=== PATIENT | female | born 1955 | race Hispanic/Latino ===

== ENCOUNTER 2022-11-21 15:26 | Inpatient (IN) | payer MEDICARE, OTHER ==
[~2022-11-21] VITALS: Ht 162.6 cm; Wt 86.2 kg
[2022-11-21] MEDS ORDERED: ONDANSETRON HCL INJ 2MG/ML 2ML 2 MG/ML VIAL IV STA (15:37)
[2022-11-21] MEDS ORDERED: ONDANSETRON HCL INJ 2MG/ML 2ML 2 MG/ML VIAL IV PRN (16:00)
[2022-11-21] MEDS ORDERED: Morphine 2mg Syringe 2 MG/ML SYR IV PRN (16:00)
[2022-11-21 16:12] LABS: BASOPHILS # (AUTO) 0.1 (0.0-0.1); BASOPHILS % 0.6 % (0.0-1.0); EOSINOPHILS # (AUTO) 0.2 (0.0-0.4); EOSINOPHILS % 1.6 % (0.0-6.0); HEMATOCRIT 42.5 % (34.2-44.1); HEMOGLOBIN 14.3 g/dL (12.0-16.0); LYMPHOCYTES # (AUTO) 3.5 (1.0-3.2); LYMPHOCYTES % 37.1 % (18.0-39.1); MEAN CORPUSCULAR HEMOGLOBIN 29.8 pg (28-32); MEAN CORPUSCULAR HGB CONC 33.6 g/dL (31-35); MEAN CORPUSCULAR VOLUME 88.5 fL (81-99); MONOCYTES # (AUTO) 0.6 (0.2-0.8); MONOCYTES % 6.8 % (4.4-11.3); NEUTROPHILS % 53.3 % (38.7-80.0); PLATELET COUNT 236 x10e3/uL (140-360); RED CELL DISTRIBUTION WIDTH 13.2 % (11.7-14.4)
[2022-11-21 16:24] LABS: CLARITY,URINE SL CLOUDY (CLEAR); COLOR,URINE YELLOW (YELLOW); KETONES,URINE 1+ (NEGATIVE); LEUKOCYTE ESTERASE ,URINE TRACE (NEGATIVE); NITRITE,URINE NEGATIVE (NEGATIVE); PROTEIN,URINE DIPSTICK 2+ (NEGATIVE); URINE UROBILINOGEN 0.2 mg/dL (0.2 - 1)
[2022-11-21 16:33] LABS: ALANINE AMINOTRANSFERASE 24 IU/L (0-55); ALBUMIN 3.9 g/dL (3.5-5.0); ALBUMIN/GLOBULIN RATIO 1.1 (0.8-2.0); ALKALINE PHOSPHATASE 77 IU/L (40-150); ANION GAP 17.2 mmol/L (8-16); BLOOD UREA NITROGEN 17 mg/dL (7-26); BUN/CREATININE RATIO 18 (6-25); CALCIUM 9.9 mg/dL (8.4-10.2); CARBON DIOXIDE 24 mmol/L (22-29); CHLORIDE 105 mmol/L (98-107); CREATININE, SERUM 0.96 mg/dL (0.57-1.11); GLUCOSE 117 mg/dL (74-118); POTASSIUM 4.2 mmol/L (3.5-5.1); SODIUM 142 mmol/L (136-145)
[2022-11-21 16:35] LABS: BACTERIA,URINE MODERATE /HPF; EPITHELIAL CELLS,URINE MANY /LPF; RBC,URINE 0-5 /HPF (0-5); WBC,URINE (MAN) 0-5 /HPF (0-5)
[2022-11-21] MEDS: SODIUM CHLORIDE 0.9% 1000ML 1,000 ML IV SCH (16:49)
[2022-11-21 20:00] VITALS: BP 169/81
[2022-11-21] MEDS ORDERED: LEVOTHYROXINE50 MCG PO (20:01)
[2022-11-21] MEDS ORDERED: BENICAR20 MG PO (20:01)
[2022-11-21] MEDS ORDERED: METFORMIN HCL500 MG PO (20:01)
[2022-11-21] MEDS ORDERED: VESICARE5 MG PO (20:01)
[2022-11-21] MEDS ORDERED: GLIMEPIRIDE2 MG PO (20:02)
[2022-11-21 20:40] VITALS: BP 169/81
[2022-11-21] MEDS: ACETAMINOPHEN 325 MG TAB PO PRN (21:39)
[2022-11-21 23:10] VITALS: BP 169/81
[2022-11-22] VITALS (8 sets, daily range): BP systolic 137–168; BP diastolic 67–86
[2022-11-22] MEDS: SODIUM CHLORIDE 0.9% 1000ML 1,000 ML IV SCH ×3 (03:22→16:38)
[2022-11-22] MEDS ORDERED: GUAIFENESIN/DEXTROMETHORPHAN LIQD 5 ML UDC PO PRN (04:30)
[2022-11-22] MEDS ORDERED: MAGNESIUM/ALUMINUM/SIMETHICONE 30 ML UDC PO PRN (04:30)
[2022-11-22] MEDS ORDERED: DOCUSATE SODIUM 100 MG CAP PO PRN (04:30)
[2022-11-22] MEDS ORDERED: DEXTROSE 50% SYRINGE 50 ML IV PRN (04:30)
[2022-11-22] MEDS ORDERED: HYDRALAZINE HCL 20 MG/ML VIAL IV PRN (04:30)
[2022-11-22 05:08] LABS: BASOPHILS # (AUTO) 0.1 (0.0-0.1); BASOPHILS % 1.1 % (0.0-1.0); EOSINOPHILS # (AUTO) 0.2 (0.0-0.4); EOSINOPHILS % 2.2 % (0.0-6.0); HEMATOCRIT 39.4 % (34.2-44.1); HEMOGLOBIN 13.1 g/dL (12.0-16.0); LYMPHOCYTES # (AUTO) 2.8 (1.0-3.2); LYMPHOCYTES % 36.4 % (18.0-39.1); MEAN CORPUSCULAR HEMOGLOBIN 29.6 pg (28-32); MEAN CORPUSCULAR HGB CONC 33.2 g/dL (31-35); MEAN CORPUSCULAR VOLUME 88.9 fL (81-99); MONOCYTES # (AUTO) 0.7 (0.2-0.8); MONOCYTES % 9.4 % (4.4-11.3); NEUTROPHILS # (AUTO) 3.8 (2.1-6.9); NEUTROPHILS % 50.4 % (38.7-80.0); PLATELET COUNT 194 x10e3/uL (140-360); RED BLOOD COUNT 4.43 x10e6/uL (3.6-5.1)
[2022-11-22 05:26] LABS: ALBUMIN 3.3 g/dL (3.5-5.0); ALBUMIN/GLOBULIN RATIO 1.1 (0.8-2.0); ANION GAP 12.7 mmol/L (8-16); CALCIUM 9.1 mg/dL (8.4-10.2); CREATININE, SERUM 0.77 mg/dL (0.57-1.11); POTASSIUM 4.7 mmol/L (3.5-5.1)
[2022-11-22] MEDS: ACETAMINOPHEN 325 MG TAB PO PRN ×2 (06:30→21:58)
[2022-11-22] MEDS: INSULIN REGULAR, HUMAN 100 UNIT/1 ML SQ SCH ×4 (07:30→21:00)
[2022-11-22] MEDS ORDERED: LEVOTHYROXINE SODIUM 50 MCG TAB PO SCH (07:30)
[2022-11-22] MEDS: SOLIFENACIN SUCCINATE 5 MG TAB PO SCH (09:01)
[2022-11-22] MEDS: METFORMIN HCL 500 MG TAB PO SCH ×3 (09:02→16:39)
[2022-11-22] MEDS: MULTIVITAMINS/MINERALS TAB PO SCH (09:02)
[2022-11-22] MEDS: OLMESARTAN 20 MG TAB PO SCH (09:02)
[2022-11-23] VITALS (8 sets, daily range): BP systolic 135–163; BP diastolic 62–84
[2022-11-23] MEDS: SODIUM CHLORIDE 0.9% 1000ML 1,000 ML IV SCH (00:20)
[2022-11-23] MEDS: LEVOTHYROXINE SODIUM 50 MCG TAB PO SCH (05:37)
[2022-11-23] MEDS: INSULIN REGULAR, HUMAN 100 UNIT/1 ML SQ SCH ×4 (07:30→20:58)
[2022-11-23] MEDS: OLMESARTAN 20 MG TAB PO SCH (09:04)
[2022-11-23] MEDS: SOLIFENACIN SUCCINATE 5 MG TAB PO SCH (09:04)
[2022-11-23] MEDS: METFORMIN HCL 500 MG TAB PO SCH ×3 (09:04→17:16)
[2022-11-23] MEDS: MULTIVITAMINS/MINERALS TAB PO SCH (09:07)
[2022-11-23] MEDS: ACETAMINOPHEN 325 MG TAB PO PRN (12:18)
[2022-11-24] VITALS: BP 142/70
[2022-11-24 04:00] VITALS: BP 162/70
[2022-11-24] MEDS: LEVOTHYROXINE SODIUM 50 MCG TAB PO SCH (05:01)
[2022-11-24] MEDS: INSULIN REGULAR, HUMAN 100 UNIT/1 ML SQ SCH ×2 (07:30→11:18)
[2022-11-24 08:11] VITALS: BP 148/66
[2022-11-24 09:00] VITALS: BP 148/66
[2022-11-24] MEDS: MULTIVITAMINS/MINERALS TAB PO SCH (09:14)
[2022-11-24] MEDS: METFORMIN HCL 500 MG TAB PO SCH ×2 (09:14→12:25)
[2022-11-24] MEDS: SOLIFENACIN SUCCINATE 5 MG TAB PO SCH (09:14)
[2022-11-24] MEDS: OLMESARTAN 20 MG TAB PO SCH (09:14)
[2022-11-24 11:37] VITALS: BP 144/65
[2022-11-24] MEDS ORDERED: ONDANSETRON HCL 4 MG ORAL DISINTEGRATING TAB PO PRN (13:15)
[2022-11-24] MEDS: ACETAMINOPHEN 325 MG TAB PO PRN (13:44)
== END 2022-11-24 14:47 | disposition home or self-care (01) | DRG 690 ==
LOC: ER 15:31 → ERHOLD 15:55 → MED/SURG2 19:44 → OBSVTOIN 11-23 09:07
PROVIDERS: ADMIT Internal Medicine Critical Care Medicine; ATTEND Internal Medicine Critical Care Medicine
DX: N39.0 Urinary tract infection, site not specified (principal); Z16.24 Resistance to multiple antibiotics; B96.20 Unspecified Escherichia coli [E. coli] as the cause of diseases classified elsewhere; I10 Essential (primary) hypertension; E11.9 Type 2 diabetes mellitus without complications; E03.9 Hypothyroidism, unspecified; K21.9 Gastro-esophageal reflux disease without esophagitis; E78.5 Hyperlipidemia, unspecified; E66.9 Obesity, unspecified; Z68.32 Body mass index [BMI] 32.0-32.9, adult; Z79.84 Long term (current) use of oral hypoglycemic drugs
CPT/HCPCS: 0223U; 36415; 80053; 81001; 82948; 85025; 87086; 93005; 94799; 99284; G0378; J0692; J2270; J7030

== ENCOUNTER → 2023-11-15 | Outpatient (REF) | payer MEDICARE ==
[~2023-11-15] MED LIST: BENICAR20 MG PO; GLIMEPIRIDE2 MG PO; LEVOTHYROXINE50 MCG PO; METFORMIN HCL500 MG PO; VESICARE5 MG PO
== END ==
LOC: RAD 14:35
PROVIDERS: ATTEND Internal Medicine
DX: R05.9 Cough, unspecified (principal)
CPT/HCPCS: 71046

== ENCOUNTER → 2023-11-22 | Outpatient (REF) | payer MEDICARE | LOC: RAD 14:16 | PROVIDERS: ATTEND Internal Medicine | DX: M54.6 Pain in thoracic spine (principal) | CPT/HCPCS: 72070 ==

== ENCOUNTER → 2024-08-06 | Outpatient (REF) | payer MEDICARE | LOC: RAD 13:57 | PROVIDERS: ATTEND Internal Medicine | DX: M25.512 Pain in left shoulder (principal) ==